=== PATIENT | female | born 1975 | race Two or more races ===

== ENCOUNTER 2022-06-28 11:46 | Day surgery (SDC) | payer MEDICAID ==
[2022-06-27 09:55] LABS: Basophils # (auto) 0.1 10 ^3/uL (0-0.2); Basophils % (auto) 1.2 % (0.0-2.0); Eosinophils # (auto) 0.1 10 ^3/uL (0-0.8); Eosinophils % (auto) 1.3 % (0.0-7.0); Hematocrit 39.2 % (36.0-46.0); Hemoglobin 13.1 g/dL (12.2-16.2); Lymphocytes # (auto) 1.3 10 ^3/uL (0.4-5.4); Lymphocytes % (auto) 26.5 % (10.0-50.0); Mean Corpuscular Hgb Conc. 33.5 g/dL (32.0-36.0); Mean Corpuscular Volume 89.6 fL (80.0-100.0); Monocytes # (auto) 0.4 10 ^3/uL (0-1.3); Neutrophils # (auto) 3.1 10 ^3/uL (1.6-8.6); Red Blood Cells 4.38 10^6/uL (4.0-5.20); Red Cell Distribution Width 14.2 % (11.8-14.3)
[2022-06-27 10:14] LABS: INR 0.99 (0.9-1.15); Partial Thromboplastin Time 28.4 sec (24.6-33.4)
[2022-06-27 11:13] LABS: Albumin 3.6 g/dL (3.4-5.0); Calcium 8.8 mg/dL (8.5-10.1); Potassium 4.4 mmol/L (3.5-5.1)
[2022-06-27 11:17] LABS: BUN/Creatinine Ratio 11.7; Bilirubin, Total 0.5 mg/dL (0.2-1.0); Total Protein 6.8 g/dL (6.4-8.2)
[~2022-06-28] VITALS: Ht 167.6 cm; Wt 88.5 kg
[~2022-06-28 11:46] MED LIST: BUPR1TAB11 PO; FAMO-68 PO
[2022-06-28] MEDS ORDERED: diphenhdrAMINE HCL 50 MG/1 ML VL ONE (14:30)
[2022-06-28] MEDS ORDERED: fentaNYL CITRATE 100 MCG/2 ML VL ONE (14:30)
[2022-06-28] MEDS ORDERED: SODIUM CHLORIDE LOCK 10 ML ONE (14:36)
[2022-06-28] MEDS ORDERED: LIDOCAINE VISCOUS 2% 15ML UD ONE (14:36)
[2022-06-28] MEDS ORDERED: MIDAZOLAM HCL 5 MG/ML-1ML VIAL ONE (14:36)
[2022-06-28 15:35] VITALS: BP 109/77
== END 2022-06-28 16:00 | disposition home or self-care (01) ==
LOC: GI 11:46
PROVIDERS: ATTEND Internal Medicine Gastroenterology
DX: R13.10 Dysphagia, unspecified (principal); K21.00 Gastro-esophageal reflux disease with esophagitis, without bleeding; K29.50 Unspecified chronic gastritis without bleeding; F41.9 Anxiety disorder, unspecified; Z91.040 Latex allergy status; Z20.822 Contact with and (suspected) exposure to COVID-19
CPT/HCPCS: 36415; 43239; 80053; 81025; 84702; 85025; 85610; 85730; 88305; 88342; J1200; J2250; J3010; J7030; U0003; 99152

== ENCOUNTER → 2022-10-11 | Day surgery (SDC) | payer MEDICAID ==
[2022-10-10 09:05] LABS: Basophils # (auto) 0.1 10 ^3/uL (0-0.2); Basophils % (auto) 1.1 % (0.0-2.0); Eosinophils # (auto) 0.1 10 ^3/uL (0-0.8); Eosinophils % (auto) 1.2 % (0.0-7.0); Hematocrit 39.6 % (36.0-46.0); Hemoglobin 13.7 g/dL (12.2-16.2); Lymphocytes # (auto) 2.1 10 ^3/uL (0.4-5.4); Lymphocytes % (auto) 37.3 % (10.0-50.0); Mean Corpuscular Hemoglobin 30.9 pg (28.0-32.0); Mean Corpuscular Hgb Conc. 34.8 g/dL (32.0-36.0); Mean Corpuscular Volume 88.9 fL (80.0-100.0); Monocytes # (auto) 0.5 10 ^3/uL (0-1.3); Monocytes % (auto) 8.8 % (0.0-12.0); Neutrophils # (auto) 2.9 10 ^3/uL (1.6-8.6); Neutrophils % (auto) 51.6 % (37.0-80.0); Nucleated Red Blood Cells % 0.1 %; Red Blood Cells 4.45 10^6/uL (4.0-5.20); White Blood Cell 5.6 10^3/uL (4.4-10.8)
[2022-10-10 09:20] LABS: INR 0.95 (0.9-1.15); Partial Thromboplastin Time 26.5 sec (24.6-33.4)
[2022-10-10 10:09] LABS: Albumin 3.7 g/dL (3.4-5.0); Calcium 9.3 mg/dL (8.5-10.1); Potassium 4.2 mmol/L (3.5-5.1)
[2022-10-10 10:13] LABS: BUN/Creatinine Ratio 22.4; Bilirubin, Total 0.4 mg/dL (0.2-1.0); Total Protein 7.5 g/dL (6.4-8.2)
[~2022-10-11] VITALS: Ht 167.6 cm; Wt 80.3 kg
[~2022-10-11] MED LIST changes: +fentaNYL CITRATE 100 MCG/2 ML VL ONE
[2022-10-11] MEDS: fentaNYL CITRATE 100 MCG/2 ML VL ONE ×2 (12:12→12:16)
[2022-10-11] MEDS: MIDAZOLAM HCL 2MG/2ML 2ml VIAL (1mg/ml) ONE ×2 (12:12→12:16)
[2022-10-11] MEDS: diphenhdrAMINE HCL 50 MG/1 ML VL ONE ×2 (12:12→12:16)
[2022-10-11 13:00] VITALS: BP 108/64
== END | disposition home or self-care (01) ==
LOC: GI 10:57
PROVIDERS: ATTEND Internal Medicine Gastroenterology
DX: R10.9 Unspecified abdominal pain (principal); K57.30 Diverticulosis of large intestine without perforation or abscess without bleeding; M62.89 Other specified disorders of muscle; K64.0 First degree hemorrhoids; Z98.51 Tubal ligation status; Z20.822 Contact with and (suspected) exposure to COVID-19
CPT/HCPCS: 36415; 45378; 80053; 81025; 84702; 85025; 85610; 85730; J1200; J2250; J3010; J7030; U0003; 99152